=== PATIENT | female | born 1960 | race Caucasian/White ===

== ENCOUNTER → 2018-02-10 | Outpatient (CLI) | payer OTHER ==
[~2018-02-10] MED LIST: AMBIEN PO; DOXEPIN HCL50 MG PO; FENOFIBRATE PO; INVOKANA PO; LANTUS 3ML100 UNITS/ INJ; LIPITOR20 MG PO; LISINOPRIL5 MG PO; NEXIUM40 MG PO; trulicity INJ
--- NOTE | 2018-02-10 15:13 | Diagnostic Imaging Report ---
PROCEDURE:KNEE THREE VIEWS BILATERAL COMPARISON:None. INDICATIONS:KNEE PAIN FINDINGS: Right: Normal mineralization. No acute displaced fracture or dislocation. No lytic or blastic lesions. Mild tricompartmental degenerative joint disease, with mild osteophytosis. No suprapatellar effusion. Left: Status post total left knee replacement. Orthopedic hardware is intact and in satisfactory alignment. No acute displaced fracture or dislocation. No lytic or blastic lesions. No suprapatellar effusion. CONCLUSION: 1. No acute abnormalities. 2. Status post left total knee replacement with intact hardware. Mild tricompartmental degenerative joint disease in the right knee. Yaw Chu M.D. Dictated by: Yaw Chu M.D. on 02/10/2018 at 15:17 Electronically approved by: Yaw Chu M.D. on 02/10/2018 at 15:17
--- NOTE | 2018-02-10 18:28 | Diagnostic Imaging Report ---
PROCEDURE:HIPS BILAT 3-4VWS (+/- PELVIS) INDICATION:Bilateral hip pain. COMPARISON:Patients [facility], CT, CT ABDOMEN/PELVIS W, 05/25/2017, 9:49. FINDINGS: Right: Normal mineralization. No acute displaced fracture or dislocation. No lytic or blastic lesions. Mild degenerative changes in the right hip joint. Soft tissues are unremarkable. Left: Normal mineralization. No acute displaced fracture or dislocation. No lytic or blastic lesions. Mild degenerative changes in the left hip joint. Soft tissues are unremarkable. Sacroiliac joints are grossly unremarkable. CONCLUSION: 1. No acute abnormalities. 2. Mild bilateral hip joint degenerative changes. Yaw Chu M.D. Dictated by: Yaw Chu M.D. on 02/10/2018 at 18:32 Electronically approved by: Yaw Chu M.D. on 02/10/2018 at 18:32
--- NOTE | 2018-02-12 10:37 | Diagnostic Imaging Report ---
History: Low back pain Comparison studies: None Technique: Axial images were obtained of the lumbar spine without contrast. Coronal and sagittal images reconstructed from the axial data. Intravenous contrast: None Findings: Number of non-rib bearing vertebral bodies: 5 Alignment: Normal lordosis. No scoliosis. Soft tissues: Atherosclerotic calcifications in the abdominal aorta and iliac arteries. Paraspinal muscles: Unremarkable. Vertebrae: Bones moderately demineralized No fractures, infection or neoplasm. Degenerative changes: L1-L2: No abnormalities. L2-L3: Mildly degenerated disc. Symmetric disc bulge but no spinal canal or foraminal stenosis. No disc herniation L3-L4: Minimally degenerated disc. Symmetric disc bulge and mild facet arthrosis patent spinal canal and foramina. No disc herniation L4-L5: Normal disc. Symmetric disc bulge and facet arthrosis (severe right, mild left) result in mild right foraminal stenosis. Patent spinal canal and left foramen. No disc herniation. L5-S1: Normal disc. Moderate bilateral facet arthrosis. Patent bilateral canal and foramina. No disc herniation. Sacroiliac joints: No degenerative changes. IMPRESSION: 1. Mildly degenerated disc at L2-3. 2. Facet arthrosis from L3 through S1 is worse on the right at L4-5 where it results in mild right foraminal stenosis. 3. Otherwise, no significant abnormalities. 4. Patent spinal canal. No disc herniations. Signed by: Dr. Gilbert Lim M.D. on 02/13/2018 6:02 PM
== END ==
LOC: CT 12:57
PROVIDERS: ATTEND Internal Medicine Hematology & Oncology
DX: M54.5 Low back pain (principal); M25.552 Pain in left hip; M25.551 Pain in right hip; M25.562 Pain in left knee; M25.561 Pain in right knee; Z96.652 Presence of left artificial knee joint
CPT/HCPCS: 72131; 73522

== ENCOUNTER → 2020-04-21 | Day surgery (SDC) | payer OTHER ==
[2020-04-16 13:21] LABS: ANION GAP 17.8 mmol/L (8-16); BLOOD UREA NITROGEN 16 mg/dL (7-26); BUN/CREATININE RATIO 19 (6-25); CALCIUM 8.7 mg/dL (8.4-10.2); CARBON DIOXIDE 18 mmol/L (22-29); CHLORIDE 105 mmol/L (98-107); CREATININE, SERUM 0.85 mg/dL (0.57-1.11); EST GLOMERULAR FILTRATION RATE > 60 ML/MIN (60-); GLUCOSE 128 mg/dL (74-118); POTASSIUM 4.8 mmol/L (3.5-5.1); SODIUM 136 mmol/L (136-145)
[~2020-04-21] MED LIST changes: +ACTONEL35 MG PO; +BUPIVACAINE 0.25%/EPI 30ML SDV INJ ONE; +CALCITRIOL0.25 MCG PO; +CEFAZOLIN SOD 1 GM VIAL ONE; +CEFAZOLIN SOD 1 GM/NS 50ML 100 ML IV ONE; +DEXAMETHASONE SOD PHOS INJ 4 MG/ML VIAL ONE; +FENTANYL CITRATE/PF 100MCG/2 ML INJ ONE; +GENTAMICIN SULFATE 40 MG/ML 2 ML VIAL ONE; +GLYCOPYRROLATE INJ 0.2 MG/ML VIAL ONE; +HYDROMORPHONE 2MG/ML 2 MG/ML ML ONE; +LABETALOL HCL 0 ML ONE; +LEXAPRO20 MG PO; +LIDOCAINE 1% W/EPINEPHRINE 20 ML VIAL ONE; +LIDOCAINE HCL 2% LOCAL INJ 5 ML SDV VIAL INJ ONE; +MIDAZOLAM HCL 2 MG/2 ML VIAL ONE; +NEOSTIGMINE 1 MG/ML 10ML VIAL ONE; +ONDANSETRON HCL INJ 2MG/ML 2ML 2 MG/ML VIAL ONE; +PROPOFOL IV EMULSION 10 MG/ML 20 ML VIAL ONE; +PROTONIX20 MG PO; +ROCURONIUM BROMIDE 10 MG/ML 5ML VIAL IV ONE; +SEVOFLURANE INHAL SOLN 250 ML PEN BTL ONE; +TRULICITY1.5 MG/0.5 INJ
[2020-04-21 15:55] VITALS: BP 139/91
--- NOTE | 2020-04-23 09:51 | Operative Report ---
DATE OF PROCEDURE: 04/21/2020 SURGEON: Samir Grove MD PREOPERATIVE DIAGNOSES: 1. 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 2. Unacceptable scarring of the arms and neck. POSTOPERATIVE DIAGNOSES: 1. 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 2. Unacceptable scarring of the arms and neck. PROCEDURES: 1. Revision of bilateral reconstructed breast. 2. Scar revision of right medial arm. 3. Revision of neck lift. ANESTHESIA: General. ESTIMATED BLOOD LOSS: Minimal. COMPLICATIONS: None. DRAINS: 7 mm drain in the neck. CONDITION IN RECOVERY: Stable, extubated. POSTOPERATIVE PLAN: Discharge to home. PROCEDURE IN DETAIL: The patient was identified and marked in the preoperative holding area. Preoperative antibiotics were given. SCDs were placed. She was placed in supine position and her chest, arms, and neck were prepped and draped in sterile fashion. I began with the breast revision. On the right breast, I marked two areas for excision. Laterally, I made a V-Y advancement to remove the breast medially and removed excess skin laterally. Also, excised a wedge of skin from the inferomedial aspect of the breast on the inframammary fold to remove the skin redundancy here. These excisions were performed full-thickness and then closed in layered fashion with 3-0 Vicryl, 4-0 Vicryl, and 4-0 Monocryl. On the left breast, there was a large area of redundancy, that was causing asymmetry and deformity of the left breast laterally. I again performed a large wedge excision of this area and then closed in similar fashion after ensuring hemostasis. On the right arm, I performed a wedge excision along the medial aspect near the elbow. This was closed with 3-0, 4-0, and 4-0 Monocryl. Lastly, I appreciated with the neck. I first infiltrated with a dilute Xylocaine solution and then allowed this to take effect. I then utilized her prior face-lift scars and undermined the skin just over this mass and platysma. I performed the same technique on the left and right side. I also utilized her prior submental incision. After elevation of submental incision, I performed a course of platysmaplasty using 2-0 PDS suture. I then performed a lateral plication of the platysma on both sides using 2-0 PDS suture as well as the lower SMAS along the jaw line using 2-0 PDS. I then re-draped the skin and trimmed the excess. The skin was then secured into position with 4-0 Vicryl sutures and 4-0 Monocryl. I placed a 7 mm drain in the left neck and extending along the midline. All counts were correct. The patient tolerated the procedure well. MD MATEO Vazquez/CHARLIE /[id number]
== END | disposition home or self-care (01) ==
LOC: OR 07:16
PROVIDERS: ATTEND Specialist
DX: N65.0 Deformity of reconstructed breast (principal); Z85.3 Personal history of malignant neoplasm of breast; L98.7 Excessive and redundant skin and subcutaneous tissue; L90.5 Scar conditions and fibrosis of skin; R53.1 Weakness; I10 Essential (primary) hypertension; E78.5 Hyperlipidemia, unspecified; E11.9 Type 2 diabetes mellitus without complications; K44.9 Diaphragmatic hernia without obstruction or gangrene; K21.9 Gastro-esophageal reflux disease without esophagitis; Z88.8 Allergy status to other drugs, medicaments and biological substances; Z01.810 Encounter for preprocedural cardiovascular examination; Z01.812 Encounter for preprocedural laboratory examination; Z11.59 Encounter for screening for other viral diseases; Z79.4 Long term (current) use of insulin; Z86.718 Personal history of other venous thrombosis and embolism
CPT/HCPCS: 11406; 12032; 15825; 19380; 36415 ×2; 80048; 82948; 93005; J0690; J1100; J1170; J2001; J2250; J2405; J2704; J2710; J3010; U0002; J1580

== ENCOUNTER → 2020-07-22 | Day surgery (SDC) | payer BC, OTHER ==
[~2020-07-22] MED LIST changes: -BUPIVACAINE 0.25%/EPI 30ML SDV INJ ONE; -CEFAZOLIN SOD 1 GM VIAL ONE; -CEFAZOLIN SOD 1 GM/NS 50ML 100 ML IV ONE; -DEXAMETHASONE SOD PHOS INJ 4 MG/ML VIAL ONE; -GENTAMICIN SULFATE 40 MG/ML 2 ML VIAL ONE; -GLYCOPYRROLATE INJ 0.2 MG/ML VIAL ONE; -HYDROMORPHONE 2MG/ML 2 MG/ML ML ONE; -LABETALOL HCL 0 ML ONE; +LANTUS 3ML100 UNITS/ SQ; -LIDOCAINE 1% W/EPINEPHRINE 20 ML VIAL ONE; -LIDOCAINE HCL 2% LOCAL INJ 5 ML SDV VIAL INJ ONE; -NEOSTIGMINE 1 MG/ML 10ML VIAL ONE; -ONDANSETRON HCL INJ 2MG/ML 2ML 2 MG/ML VIAL ONE; +OR PHACO EYE KIT ONE; +PREOP PHACO EYE KIT ONE; -PROPOFOL IV EMULSION 10 MG/ML 20 ML VIAL ONE; -ROCURONIUM BROMIDE 10 MG/ML 5ML VIAL IV ONE; -SEVOFLURANE INHAL SOLN 250 ML PEN BTL ONE; +TEMAZEPAM15 MG PO
[2020-07-22 13:48] VITALS: BP 152/94
== END | disposition home or self-care (01) ==
LOC: OR 08:52
PROVIDERS: ATTEND Ophthalmology
DX: H25.12 Age-related nuclear cataract, left eye (principal); E11.9 Type 2 diabetes mellitus without complications; Z01.812 Encounter for preprocedural laboratory examination; Z20.828 Contact with and (suspected) exposure to other viral communicable diseases; Z85.3 Personal history of malignant neoplasm of breast; Z79.4 Long term (current) use of insulin
CPT/HCPCS: 36415; 66984; 82948; J2250; J3010; U0002; V2632